=== PATIENT | male | born 1985 | race Caucasian/White ===

== ENCOUNTER 2019-07-13 00:54 | Emergency (ER) | payer SELFPAY ==
[~2019-07-13] VITALS: Ht 165.1 cm; Wt 65.0 kg
[~2019-07-13 00:54] MED LIST: HERBAL SUPPLEMENTS
[2019-07-13] MEDS ORDERED: HALOPERIDOL LACTATE 5MG/ML VIAL IM ONE (01:45)
[2019-07-13 02:22] LABS: BASOPHILS % 0.4 % (0.0-2.0); EOSINOPHILS % 0.3 % (0.0-5.0); HEMATOCRIT. 46.7 % (42.0-52.0); HEMOGLOBIN. 15.7 g/dL (14.0-18.0); LYMPHOCYTES % 18.7 % (20.0-50.0); MEAN CORPUSCULAR HEMOGLOBIN 28.9 pg (28.0-32.0); MEAN CORPUSCULAR VOLUME 85.7 fL (80.0-94.0); MONOCYTES % 3.1 % (2.0-8.0); NEUTROPHILS % 77.5 % (40.0-76.0); PLATELET 300 x1000/uL (130-400); RED BLOOD CELL COUNT 5.45 mill/uL (4.7-6.1); RED CELL DISTRIBUTION WIDTH 14.6 % (11.6-14.6)
[2019-07-13 02:32] LABS: CHLORIDE 108 mEq/L (98-107)
[2019-07-13 03:48] LABS: ETHANOL BLOOD 416 mg/dL
[2019-07-13 10:32] VITALS: BP 112/71
== END 2019-07-13 10:35 | disposition home or self-care (01) ==
LOC: ER 00:54
DX: S02.842A Fracture of lateral orbital wall, left side, initial encounter for closed fracture (principal); R45.1 Restlessness and agitation; F10.229 Alcohol dependence with intoxication, unspecified; I49.9 Cardiac arrhythmia, unspecified; Y04.0XXA Assault by unarmed brawl or fight, initial encounter; Y93.89 Activity, other specified; Y92.89 Other specified places as the place of occurrence of the external cause; Y99.8 Other external cause status; Y90.8 Blood alcohol level of 240 mg/100 ml or more
CPT/HCPCS: 36415; 70450; 70486; 71045; 80053; 80320; 83880; 84484; 85025; 93005; 96372; 99284; J1630; G0480